=== PATIENT | male | born 1985 | race Caucasian/White ===

== ENCOUNTER 2017-08-04 08:55 | Emergency (ER) | payer OTHER ==
[2017-08-04 09:03] VITALS: BMI 21.2
[2017-08-04 09:04] VITALS: BP 109/81; PULSE 71; RESP 17; TEMP 98.4; O2SAT 98
--- NOTE | 2017-08-04 09:34 | ED PDOC ---
Lower Extremity Pain/Injury Time Seen by Provider: 08/04/17 09:17 Chief Complaint (Nursing): Lower Extremity Problem/Injury Chief Complaint (Provider): Knee pain History Per: Patient History/Exam Limitations: no limitations Onset/Duration Of Symptoms: Days (yesterday) Current Symptoms Are (Timing): Still Present Additional Complaint(s): Pt. was running for the path yesterday and fell onto his knee accidentally. Got up and ambulated on it with no issues. Started having more pain after getting home and worse now. Has swelling to the his knee R. No injury to other parts of his body, head, neck. No numbness, tingles, weakness, dizziness. No ankle pain. Past Medical History Reviewed: Nursing Documentation, Vital Signs Vital Signs: Last Vital Signs Temp 98.4 F 08/04/17 09:03 Pulse 71 08/04/17 09:03 Resp 17 08/04/17 09:03 BP 109/81 08/04/17 09:03 Pulse Ox 98 08/04/17 09:03 - Medical History PMH: No Chronic Diseases - Surgical History Surgical History: No Surg Hx - Family History Family History: States: Unknown Family Hx - Living Arrangements Living Arrangements: With Family - Social History Current smoker - smoking cessation education provided: No Alcohol: None Drugs: Denies - Home Medications Home Medications: Ambulatory Orders Medication Instructions Recorded Bacitracin Ointment [Bacitracin] 30 gm TOP BID #1 tube 07/10/14 Ibuprofen [Motrin] 600 mg PO TID 7 Days tab 08/04/17 - Allergies Allergies/Adverse Reactions: Allergies Allergy/AdvReac Type Severity Reaction Status Date / Time No Known Allergies Allergy Verified 07/10/14 15:55 Review of Systems Constitutional: Negative for: Weakness Cardiovascular: Negative for: Chest Pain, Edema Respiratory: Negative for: Shortness of Breath Musculoskeletal: Positive for: Leg Pain. Negative for: Neck Pain, Shoulder Pain , Arm Pain, Back Pain, Hand Pain Skin: Negative for: Rash Neurological: Negative for: Weakness, Numbness, Incoordination Physical Exam - Reviewed Nursing Documentation Reviewed: Yes Vital Signs Reviewed: Yes - Physical Exam Appears: Positive for: Non-toxic, No Acute Distress Head Exam: Positive for: ATRAUMATIC, NORMAL INSPECTION, NORMOCEPHALIC Neck: Positive for: Normal, Painless ROM Cardiovascular/Chest: Positive for: Regular Rate, Rhythm Respiratory: Positive for: CNT, Normal Breath Sounds Pulses-Dorsalis Pedis (L): 2+ Pulses-Dorsalis Pedis (R): 2+ Back: Positive for: Normal Inspection. Negative for: L CVA Tenderness, R CVA Tenderness Extremity: Positive for: Normal ROM (with pain of the knee), Tenderness ( Anterior knee with infrapatellar mild swelling and echymosis.) Neurologic/Psych: Positive for: Alert, Oriented - ECG O2 Sat by Pulse Oximetry: 98 Pulse Ox Interpretation: Normal - Radiology X-Ray: Interpreted by Me, Viewed By Me X-Ray Interpretation: No Acute Disease - Progress ED Course And Treament: 1053: Stable. AAOx3. Pain controlled. Fu with pcp. Erik wrap. Ambulated with no issues. Disposition - Clinical Impression Clinical Impression: Knee injury - Patient ED Disposition Is Patient to be Admitted: No Counseled Patient/Family Regarding: Studies Performed, Diagnosis, Need For Followup - Disposition Referrals: [facility] [Outside] - 08/05/17 [facility] [place] [Outside] - 08/05/17 Disposition: Routine/Home Disposition Time: 10:54 Condition: STABLE Additional Instructions: Return if not better in 3 days. Prescriptions: Ibuprofen [Motrin] 600 mg PO TID 7 Days tab Instructions: Knee Pain (ED) Forms: [facility] ([place])
--- NOTE | 2017-08-04 11:36 | RAD ---
PROCEDURE: Right Knee Radiographs. HISTORY: pain COMPARISON: None. FINDINGS: BONES: Normal. No fracture. JOINTS: Normal. No osteoarthritis. JOINT EFFUSION: None. OTHER FINDINGS: None. IMPRESSION: No evidence of acute displaced fracture nor dislocation. If symptoms persist or occult fracture suspected clinically consider followup MRI
== END 2017-08-04 11:36 | disposition home or self-care (01) ==
LOC: SUPCPDRO 08:55 → H.ER 08:55
DX: S89.91XA Unspecified injury of right lower leg, initial encounter (principal); W19.XXXA Unspecified fall, initial encounter; Y92.89 Other specified places as the place of occurrence of the external cause